=== PATIENT | female | born 1965 | race Caucasian/White ===

== ENCOUNTER 2023-10-02 08:05 | Observation (INO) ==
[~2023-10-02 08:05] MED LIST: Naloxone 0.4 mg VIAL 0.4 mg/ml 1 ml VIAL IV PRN; Prochlorperazine 5 mg/ml 2 ml VIAL (10 mg) IV PRN; fentaNYL 100 mcg/2 ml 50 MCG/ML VIAL IV PRN
[2023-10-02] MEDS ORDERED: Propofol 10 MG/ML 20 ML BTL ONE (08:14)
[2023-10-02] MEDS ORDERED: Midazolam 2 mg/2 ml VIAL 1 mg/ml 2 ml VIAL (2 mg) ONE (08:14)
[2023-10-02] MEDS ORDERED: fentaNYL 100 mcg/2 ml 50 MCG/ML VIAL ONE (08:14)
[2023-10-02] MEDS ORDERED: Lidocaine 2% PF 5 ML VIAL ONE (08:14)
[2023-10-02] MEDS ORDERED: Ondansetron 4 mg VIAL 2 MG/ML 2 ml VIAL ONE (08:14)
[2023-10-02] MEDS ORDERED: Dexamethasone IV 4 MG/ML VIAL 1 ml VIAL ONE (08:14)
[2023-10-02] MEDS ORDERED: Tranexamic Acid 1 GM/100ML BAG 2,000 MG/200 ML BAG IV ONE (08:17)
[2023-10-02] MEDS ORDERED: ceFAZolin 2 GM PREMIX 2 GM/50 ML BAG ONE (08:18)
[2023-10-02 08:40] LABS: Rapid COVID-19 Molecular Undetected (Undetected)
[2023-10-02] MEDS ORDERED: Sodium Citrate/Citric Acid LIQ 15 ML UDC ONE (09:29)
[2023-10-02] MEDS ORDERED: Famotidine IV 10 MG/ML 2 ml VIAL (20 mg) ONE (09:29)
[2023-10-02] MEDS: Sodium Citrate/Citric Acid LIQ 15 ML UDC PO ONE (09:32)
[2023-10-02] MEDS: Famotidine IV 10 MG/ML 2 ml VIAL (20 mg) IV SLOW PU ONE (09:41)
[2023-10-02] MEDS ORDERED: ROPIVACAINE 5 MG/ML 30 ML BTL (0.5%) ONE (09:57)
[2023-10-02] MEDS ORDERED: Ondansetron 4 mg VIAL 2 MG/ML 2 ml VIAL IV PRN (11:52)
[2023-10-02] MEDS ORDERED: Magnesium Hydroxide LIQ 30 ML UDC PO PRN (11:52)
[2023-10-02] MEDS ORDERED: Ondansetron ODT 4 mg TAB 4 MG TAB PO PRN (11:52)
[2023-10-02] MEDS ORDERED: Lactulose 30 ml UDC PO PRN (11:52)
[2023-10-02] MEDS: Lactated Ringers 1000 ml BAG 1,000 ML IV SCH (15:52)
[2023-10-02] MEDS: ceFAZolin 1 GM ADVAN 1 GM in NS 0.9% 50 ML 50 ML IVPB SCH (17:47)
[2023-10-02] MEDS: Magnesium Hydroxide LIQ 30 ML UDC PO SCH (21:27)
[2023-10-02] MEDS: Morphine 2 MG/ML SYRINGE IV PRN (21:41)
[2023-10-03] MEDS ORDERED: Lactated Ringers 1000 ml BAG 1,000 ML IV SCH (06:00)
[2023-10-03] MEDS ORDERED: Buffered Lidocaine 1% SYRIN 1 ml INTRADERM ONE (06:00)
[2023-10-03 06:21] LABS: Hematocrit 31.4 % (35-45); Hemoglobin 10.8 g/dL (11.5-14.3); Mean Platelet Volume 8.1 fL (7.5-11.2); Platelet Count 193 10^3/uL (150-450)
[2023-10-03 06:38] LABS: Calcium 8.9 mg/dL (8.6-10.3); Creatinine, Serum 0.7 mg/dL (0.51-0.95); Potassium 4.1 mmol/L (3.5-5.0); eGFR CKD-EPI 101.4 (>60)
[2023-10-03] MEDS: Vitamin THERAPEUTIC TAB PO SCH (08:01)
[2023-10-03 09:57] VITALS: BP 109/47
== END 2023-10-03 13:20 | disposition home or self-care (01) ==
LOC: OR 08:05 → SSU 08:05 → EDSTATUS 11:15
PROVIDERS: ADMIT Orthopaedic Surgery Adult Reconstructive Orthopaedic Surgery; ATTEND Orthopaedic Surgery Adult Reconstructive Orthopaedic Surgery